=== PATIENT | female | born 1975 | race Caucasian/White ===

== ENCOUNTER 2021-01-11 11:21 | Outpatient (CLI) | payer BC, SELFPAY ==
[2021-01-14 20:37] LABS: FSH 34.2 mIU/mL (***); LH 23.4 mIU/mL (***); Progesterone <0.2 ng/mL (***)
== END 2021-01-11 11:22 | disposition home or self-care (01) ==
PROVIDERS: Visit Provider Obstetrics & Gynecology
DX: N92.6 Irregular menstruation, unspecified (principal)
CPT/HCPCS: 36415; 83001; 83002; 84144; 84443